=== PATIENT | male | born 1975 | race Two or more races ===

== ENCOUNTER 2019-10-24 16:09 | Emergency (ER) | payer SELFPAY ==
[~2019-10-24] VITALS: Ht 172.7 cm; Wt 85.7 kg
[2019-10-24 16:56] LABS: BASOPHILS # (AUTO) 0.1 /CMM (0.0-0.2); BASOPHILS % (AUTO) 0.8 % (0.0-2.0); EOSINOPHILS % (AUTO) 0.7 % (0.0-6.0); HEMATOCRIT 42 % (39-51); HEMOGLOBIN 13.8 g/dL (13.5-17.5); LYMPHOCYTES # (AUTO) 1.8 /CMM (0.8-4.8); MEAN CORPUSCULAR HGB CONC 33 g/dl (31.0-36.0); MEAN CORPUSCULAR VOLUME 89 fL (80-96); MONOCYTES # (AUTO) 0.4 /CMM (0.1-1.30); MONOCYTES % (AUTO) 5.1 % (2.0-12.0); NEUTROPHILS # (AUTO) 4.9 /CMM (1.8-8.9); NEUTROPHILS % (AUTO) 68.4 % (43.0-81.0); PLATELET COUNT (AUTO) 250 /CMM (150-450); RED BLOOD CELL COUNT(AUTO) 4.65 MIL/uL (4.5-6.0); WHITE BLOOD COUNT (AUTO) 7.2 K/uL (4.3-11.0)
[2019-10-24 17:23] LABS: ALBUMIN 3.7 g/dL (3.4-5.0); BILIRUBIN,DIRECT 0.1 mg/dL (0.0-0.2); BILIRUBIN,TOTAL 0.3 mg/dL (0.2-1.0); CALCIUM, SERUM 7.9 mg/dL (8.5-10.1); CREATININE 0.7 mg/dL (0.6-1.3); POTASSIUM 3.5 mmol/L (3.5-5.1); TOTAL PROTEIN, SERUM 7.2 g/dL (6.4-8.2)
--- NOTE | 2019-10-24 19:05 | NUR ---
Pt sleeping in [place]. No signs of distress noted. Pt vital signs stable. Will cont to monitor pt.
--- NOTE | 2019-10-24 23:03 | NUR ---
Pt sleeping in gurney, easily arousable. Breaths equal and unlabored. No signs of distress noted. Pt vital signs stable. Will cont to monitor pt.
--- NOTE | 2019-10-25 03:16 | NUR ---
Patient is awake and alert to self, day, and place. Pt ambulatory with a steady gait. Pt requesting to be discahrged home. Pt ok to be discharged per Dr Colon. Patient discharged to home in stable condition. Written and verbal after care instructions given. Patient verbalizes understanding of instruction.
[2019-10-25 03:18] VITALS: BP 132/81
== END 2019-10-25 03:18 | disposition home or self-care (01) ==
LOC: EDBD 16:13 → ER 16:13
DX: F10.129 Alcohol abuse with intoxication, unspecified (principal); R41.82 Altered mental status, unspecified; Y90.8 Blood alcohol level of 240 mg/100 ml or more
CPT/HCPCS: 36415; 70450; 80048; 80076; 80307; 80329; 82962; 85025; 99284; G0480